=== PATIENT | male | born 1990 | race Caucasian/White ===

== ENCOUNTER 2022-09-04 09:00 | Outpatient (CLI) | payer BC | END 2022-09-04 23:59 | disposition home or self-care (01) | LOC: RAD 09:00 | PROVIDERS: ATTEND Family Medicine | DX: S39.011A Strain of muscle, fascia and tendon of abdomen, initial encounter (principal); K40.91 Unilateral inguinal hernia, without obstruction or gangrene, recurrent; X58.XXXA Exposure to other specified factors, initial encounter; Y93.89 Activity, other specified; Y92.89 Other specified places as the place of occurrence of the external cause; Y99.8 Other external cause status | CPT/HCPCS: 76700 ==